=== PATIENT | male | born 1970 | race Asian ===

== ENCOUNTER 2024-01-28 08:14 | Day surgery (SDC) | payer OTHER ==
[~2024-01-28] VITALS: Ht 160 cm; Wt 51.3 kg
[2024-01-28] MEDS ORDERED: LIDOCAINE 2% 100 MG/5 ML UJET TP ONE (09:57)
[2024-01-28] MEDS ORDERED: fentaNYL citrate 0.05 MG/ML VIAL ONE (09:57)
[2024-01-28] MEDS: fentaNYL citrate 0.05 MG/ML VIAL IVP ONE (10:16)
== END 2024-01-28 12:12 | disposition home or self-care (01) ==
LOC: MDS 08:14 → MMU 08:14 → MDS 12:12
PROVIDERS: ATTEND Internal Medicine Gastroenterology
DX: Z12.11 Encounter for screening for malignant neoplasm of colon (principal); K57.30 Diverticulosis of large intestine without perforation or abscess without bleeding; K64.9 Unspecified hemorrhoids; F17.210 Nicotine dependence, cigarettes, uncomplicated
CPT/HCPCS: 45378; J3010